=== PATIENT | male | born 1970 | race Caucasian/White ===

== ENCOUNTER 2024-03-09 13:37 | Emergency (ER) | payer SELFPAY ==
[2024-03-09 13:42] VITALS: BP 126/88; RESP 18; TEMP 98.7; BMI 30.4
[2024-03-09] MEDS: DIPHTH,PERTUSS(ACELL),TET 0.5 ML DISP.SYRIN IM ONE (14:41)
[2024-03-09] MEDS ORDERED: DIPHTH,PERTUSS(ACELL),TET 0.5 ML DISP.SYRIN IM ONE (14:42)
[2024-03-09 15:29] VITALS: PULSE 64
== END 2024-03-09 15:42 | disposition home or self-care (01) ==
LOC: JERFT 13:37
PROC: 0HQGXZZ Repair Left Hand Skin, External Approach (ICD-10-PCS; principal; 2024-03-09)
PROC: 3E0234Z Introduction of Serum, Toxoid and Vaccine into Muscle, Percutaneous Approach (ICD-10-PCS; 2024-03-09)
DX: S61.213A Laceration without foreign body of left middle finger without damage to nail, initial encounter (principal); W27.2XXA Contact with scissors, initial encounter; Z23 Encounter for immunization
CPT/HCPCS: 90715; 99283-25